=== PATIENT | female | born 1935 | race Caucasian/White ===

== ENCOUNTER 2023-09-01 15:56 | Outpatient (RCR) | payer MEDICARE, OTHER, SELFPAY | END 2023-09-04 09:25 | disposition home or self-care (01) | LOC: RPT 15:56 | PROVIDERS: ATTENDING PHYSICIAN Family Medicine | DX: R26.89 Other abnormalities of gait and mobility (principal) | CPT/HCPCS: 97110; 97112; 97116; 97163; 97530 ==

== ENCOUNTER 2023-10-03 13:48 | Outpatient (RCR) | payer MEDICARE, OTHER, SELFPAY | END 2023-10-03 23:59 | disposition home or self-care (01) | LOC: RPT 13:48 | PROVIDERS: ATTENDING PHYSICIAN Family Medicine | DX: R26.89 Other abnormalities of gait and mobility (principal); Z73.6 Limitation of activities due to disability; R26.2 Difficulty in walking, not elsewhere classified | CPT/HCPCS: 97110; 97112 ==

== ENCOUNTER 2023-10-31 09:09 | Outpatient (RCR) | payer MEDICARE, OTHER, SELFPAY | END 2023-10-31 23:59 | disposition home or self-care (01) | LOC: RPT 09:09 | PROVIDERS: ATTENDING PHYSICIAN Family Medicine | DX: R26.89 Other abnormalities of gait and mobility (principal); Z73.6 Limitation of activities due to disability; R26.2 Difficulty in walking, not elsewhere classified; I69.398 Other sequelae of cerebral infarction | CPT/HCPCS: 97110; 97112 ==

== ENCOUNTER 2023-11-28 09:50 | Outpatient (RCR) | payer MEDICARE, OTHER, SELFPAY | END 2023-11-28 23:59 | disposition home or self-care (01) | LOC: RPT 09:50 | PROVIDERS: ATTENDING PHYSICIAN Family Medicine | DX: R26.89 Other abnormalities of gait and mobility (principal); Z73.6 Limitation of activities due to disability; R26.2 Difficulty in walking, not elsewhere classified | CPT/HCPCS: 97110; 97112; 97530 ==

== ENCOUNTER 2024-01-09 21:24 | Emergency (ER) | payer MEDICARE, OTHER, SELFPAY ==
[2024-01-09 21:57] LABS: % Basophils 0.5 % (0-2); % Eosinophils 2.6 % (0-6); % Immature Granulocytes 0.3 % (0-0.5); % Lymphocytes 23.7 % (20.5-51.1); % Monocytes 7.8 % (1.7-9.3); % Neutrophils 65.1 % (42.2-75.2); Absolute Eosinophils 0.2 10^3/uL (0-0.7); Absolute Monocytes 0.7 10^3/uL (0.1-0.6); Absolute Neutrophils 5.6 10^3/uL (1.4-6.5); Hemoglobin 13.1 g/dL (12.0-16.0); Mean Corp Hgb Conc. 33.6 g/dL (33.0-37.0); Mean Corpuscular Hgb 31.1 pg (27.0-31.0); Mean Corpuscular Volume 92.6 fL (81.0-99.0); Mean Platelet Volume 9.6 fL (7.4-10.4); Nucleated Red Blood Cells % 0 %; Platelet Count 256 10^3/uL (130-400); Red Blood Cell Count 4.21 10^6/uL (4.20-5.40); Red Cell Dist. Width 13.9 % (11.5-14.5); White Blood Cell Count 8.6 10^3/uL (4.8-10.8)
[2024-01-09 22:11] LABS: ALT (SGPT) 18 U/L (0-35); AST (SGOT) 33 U/L (14-36); Albumin 4.2 g/dl (3.5-5.0); Alkaline Phosphatase 130 U/L (38-126); Blood Urea Nitrogen 19 mg/dl (7-17); Calcium 9.5 mg/dl (8.4-10.2); Carbon Dioxide 27 mmol/L (22-30); Chloride 103 mmol/L (98-107); Glucose 126 mg/dl (70-99); Potassium 4.2 mmol/L (3.5-5.1); Sodium 137 mmol/L (135-145); Total Bilirubin 0.5 mg/dl (0.2-1.3); Total Protein 7.7 g/dl (6.3-8.2); eGFR > 60.00
[2024-01-10 00:39] VITALS: BP 161/94; BMI 34.4
[2024-01-10 01:00] VITALS: BP 173/78
--- NOTE | 2024-01-10 01:21 | ED.GENMED ---
History of Present Illness
General
Chief Complaint: Weakness
Time Seen by Provider: 01/10/24 01:21
Travel History
Have you had any contact with someone who has COVID-19?: No
Do you have any symptoms of coronavirus? Fever > 100 degrees, chills, cough, shortness of breath, sore throat, loss of taste or smell, muscle aches, or headache?: No
History of Present Illness
History of Present Illness:
HPI: Patient's daughter brought the patient here due to concerns for some change in her speech. The daughter seems to have some problems with expressive aphasia that may have started at some point today however the daughter also indicates that she
has had similar episodes in the past. The patient was at her other daughter's house over the past month and the daughter at bedside [place] and noticed somewhat of a change. The patient describes some degree of
expressive aphasia however the timing is unclear. She reports vague weakness as well. She reports no focal findings.
EXAM:
GENERAL: Well appearing in no distress
HEENT: Moist oral mucosa
CARDIOVASCULAR: No murmurs, normal heart rate, regular rhythm, No chest wall tenderness
PULMONARY: No respiratory distress, breath sounds are clear and equal
ABDOMEN: Soft with no peritoneal signs, no tenderness
NEUROLOGIC: Good strength all extremities, no coordination deficits, normal finger-nose testing bilaterally
PSYCHIATRIC: Fairly good mental status, reasonable insight and judgement, she knows that it is May, she knows that she is at [facility]
EXTREMITIES: Nontender, no edema, moves all extremities equally
SKIN: No rash, no lesions
TIME OF INITIAL ENCOUNTER: 12:30 AM
NUMBER AND COMPLEXITY OF PROBLEMS ADDRESSED AT THE ENCOUNTER
� Chronic conditions affecting care: Dementia, high blood pressure, hyperlipidemia, GERD, colon cancer, hypothyroidism, anemia
� Acute Exacerbation and/or Progression of Chronic Illness: This is an acute problem
� Differential Diagnosis includes: CVA, UTI, electrolyte abnormality such as hyponatremia, progressive functional decline, worsening dementia
AMOUNT AND/OR COMPLEXITY OF DATA TO BE REVIEWED AND ANALYZED
� I performed an independent evaluation of and my interpretation is:
EKG: Sinus 62, left axis deviation, left bundle branch block which is new in comparison to 06/19/2019
CT: Brain CT shows chronic abnormality but no acute finding
X-rays:
Laboratory Studies: White blood cell count was normal at 8.6, hemoglobin 13.1, chemistries relatively unremarkable. Urinalysis shows no evidence of infection.
Other:
� Review of other/old records: I reviewed records, the patient had endoscopy in 2020 and was getting physical therapy here 2 months ago
� Clinical information was obtained by an independent historian: I spoke to the daughter at bedside
� Prescriptions/Medications Considered but not given:
� Further testing considered but not performed:
RISK OF COMPLICATIONS AND/OR MORBIDITY OR MORTALITY OF PATIENT MANAGEMENT
� Social determinants of health affecting care: Lives at home
� Discussion with other providers:
� Escalation of care including admission/observation vs risk of discharge considered: The patient's symptoms may or may not be related to CVA. The timing is somewhat unclear as the daughter said that she saw her for the first
time in a month and noticed the symptoms today but is also noticed similar episodes in the past. I offered to consider keeping the patient in the hospital given her advanced age with potential neurologic concerns however the she is strongly wants
to be managed as an outpatient. I feel this would be reasonable. I reassessed the patient several times and still did not hear any clear acute speech abnormality. There is no definite aphasia or speech dysarthria. Ultimately patient and daughter
preferred outpatient management.
Past History
Past History
ED Past Medical History: Asthma, Cancer (Colon CA 2016), CVA (Oct 2018), GERD, HTN, Hypercholesterolemia, Hypothyroidism and Other (LE neuropathy)
ED Past Surgical History: Appendectomy and Bowel resection
Social History
Tobacco: Former smoker
Alcohol: None
Personal:
Living: with family
Employment: Retired
Family History
Family History: Hypertension and Other (Stroke)
Phy Exam
Physical Exam
Physical Exam:
See HPI
Course
Orders/Labs/Results
Orders:
Orders
01/09/24 21:37
Electrocardiogram (*1) Urgent
Reason for Study: Fatigue / Weakness
Head wo Contrast CT [CT Head W/o Iv Contrast] Urgent
Comment:
Reason For Exam: weakness
EKG- Treatment ONCE
Urinalysis Reflex To Culture Urgent
Date Specimen was Collected: 01/09/24
Time Specimen was Collected: 21:37
01/09/24 21:52
CMP [Comprehensive Metabolic Panel] Urgent
Complete Blood Count/With Diff Urgent
01/10/24 01:32
Straight cath- Treatment ONCE
Abnormal Lab Results
01/09/24
21:52
MCH 31.1 H pg
(27.0-31.0)
Absolute Monos (auto) 0.7 H 10^3/uL
(0.1-0.6)
BUN 19 H mg/dl
(7-17)
Glucose 126 H mg/dl
(70-99)
Alkaline Phosphatase 130 H U/L
(38-126)
01/09/24 21:52
01/09/24 21:52
Vital Signs
Initial and Last Documented VS:
Initial Vital Signs
Temp Pulse Resp Pulse Ox
97 F 63 18 95
01/09/24 21:32 01/09/24 21:32 01/09/24 21:32 01/09/24 21:32
Last Documented Vital Signs
Temp Pulse Resp BP Pulse Ox
97 F 52 21 187/79 95
01/09/24 21:32 01/10/24 02:15 01/10/24 02:15 01/10/24 02:00 01/10/24 02:15
*Critical Care Note
Total Time (30-74mins, 75-104mins- exclusive of procedures): Not Applicable
ED Attending Note
-
Portions of this chart may have been created with voice recognition software.� Occasional wrong word or��sound alike� substitutions may have occurred due to the inherent limitations of voice recognition software.
Discharge Plan
Departure
Patient Disposition: Home (Routine Discharge)
Date of Disposition: 01/10/24
Time of Disposition: 02:25
Patient with high blood pressure during this ER visit?: Yes
Discharge Problem:
Speech abnormality
Prescriptions:
No Action
losartan 50 MG tablet
100 mg PO HS
levothyroxine 150 MCG tablet
150 mcg PO DAILY
cyanocobalamin (vitamin B-12) 1,000 MCG tablet
100 mcg PO DAILY
gabapentin 300 MG capsule
300 mg PO BID
verapamil 240 MG tablet extended release
240 mg PO QPM
multivitamin 1 EACH tablet
1 ea PO DAILY
atorvastatin 80 MG tablet
80 mg PO DAILY
sertraline 25 MG tablet
25 mg PO DAILY
albuterol sulfate [Proventil HFA] 90 MCG/PUFF HFA aerosol inhaler
2 puff inhalation Q4H PRN (Reason: SOB) Qty: 1 0RF
cholecalciferol (vitamin D3) 1,000 UNITS tablet
1,000 units PO DAILY
pantoprazole 40 MG tablet,delayed release (DR/EC)
40 mg PO BID Qty: 60 0RF
Referrals:
Phill Martin, [Family Provider] -
Activity Restrictions/Additional Instructions:
The cause of your symptoms is unclear. Urinalysis shows no evidence of infection. Complete blood cell count and chemistries are unremarkable. The CAT scan of the brain shows no definite acute abnormality. EKG shows a normal sinus rhythm.
Interventions
Interventions:
*Risk Screen - Suicide Last Done: 01/10/24 00:09
*General Assessment Last Done: 01/09/24 21:32
*Neglect/Abuse Screening Last Done: 01/10/24 00:09
ED- Cardiac Assessment Last Done: 01/10/24 00:39
ED- Neurological Assessment Last Done: 01/10/24 00:39
ED- Pulmonary Assessment Last Done: 01/10/24 00:39
Discharge Date and Time
Print Language: RWANDAN
[2024-01-10 01:59] LABS: Urine Albumin Negative (Neg - Trace); Urine Bilirubin Negative (Negative); Urine Character Clear (Clear); Urine Color Yellow; Urine Glucose Negative (Negative); Urine Ketone Negative (Negative); Urine Leukocyte Negative (Negative); Urine Nitrite Negative (Negative); Urine Occult Blood Negative (Negative); Urine Urobilinogen Negative (Neg - 1+)
[2024-01-10 02:00] VITALS: BP 187/79
== END 2024-01-10 02:59 | disposition home or self-care (01) ==
LOC: EMR 21:24
PROVIDERS: Emergency Medicine; EMERGENCY PHYSICIAN Emergency Medicine; FAMILY PHYSICIAN Family Medicine
DX: R47.9 Unspecified speech disturbances (principal); I10 Essential (primary) hypertension; F03.90 Unspecified dementia, unspecified severity, without behavioral disturbance, psychotic disturbance, mood disturbance, and anxiety; E78.00 Pure hypercholesterolemia, unspecified; E03.9 Hypothyroidism, unspecified; Z87.891 Personal history of nicotine dependence; K21.9 Gastro-esophageal reflux disease without esophagitis
CPT/HCPCS: 99284; 70450; 80053; 81003; 85025; 93005

== ENCOUNTER 2024-02-02 16:28 | Outpatient (RCR) | payer MEDICARE, OTHER, SELFPAY | END 2024-02-02 23:59 | disposition home or self-care (01) | LOC: RPT 16:28 | PROVIDERS: ATTENDING PHYSICIAN Family Medicine | DX: R26.89 Other abnormalities of gait and mobility (principal); Z73.6 Limitation of activities due to disability | CPT/HCPCS: 97110; 97112 ==

== ENCOUNTER 2024-03-01 14:08 | Outpatient (RCR) | payer MEDICARE, OTHER, SELFPAY | END 2024-03-01 23:59 | disposition home or self-care (01) | LOC: RPT 14:08 | PROVIDERS: ATTENDING PHYSICIAN Family Medicine | DX: R26.89 Other abnormalities of gait and mobility (principal); Z73.6 Limitation of activities due to disability | CPT/HCPCS: 97110; 97112; 97530 ==

== ENCOUNTER 2024-04-03 11:50 | Outpatient (RCR) | payer MEDICARE, OTHER, SELFPAY | END 2024-04-03 23:59 | disposition home or self-care (01) | LOC: RPT 11:50 | PROVIDERS: ATTENDING PHYSICIAN Family Medicine | DX: R26.89 Other abnormalities of gait and mobility (principal); Z73.6 Limitation of activities due to disability | CPT/HCPCS: 97110; 97112; 97530 ==

== ENCOUNTER 2024-05-03 12:04 | Outpatient (RCR) | payer MEDICARE, OTHER, SELFPAY | END 2024-05-03 23:59 | disposition home or self-care (01) | LOC: RPT 12:04 | PROVIDERS: ATTENDING PHYSICIAN Family Medicine | DX: R26.89 Other abnormalities of gait and mobility (principal) | CPT/HCPCS: 97110; 97112; 97530 ==

== ENCOUNTER 2024-05-22 11:32 | Outpatient (RCR) | payer MEDICARE, OTHER, SELFPAY | END 2024-05-22 23:59 | disposition home or self-care (01) | LOC: RPT 11:32 | PROVIDERS: ATTENDING PHYSICIAN Family Medicine | DX: R26.89 Other abnormalities of gait and mobility (principal); Z73.6 Limitation of activities due to disability; R26.2 Difficulty in walking, not elsewhere classified | CPT/HCPCS: 97110 ==

== ENCOUNTER 2024-07-03 11:53 | Outpatient (RCR) | payer MEDICARE, OTHER, SELFPAY | END 2024-07-03 23:59 | disposition home or self-care (01) | LOC: RPT 11:53 | PROVIDERS: ATTENDING PHYSICIAN Family Medicine | DX: R26.89 Other abnormalities of gait and mobility (principal); Z73.6 Limitation of activities due to disability | CPT/HCPCS: 97110; 97112; 97530 ==

== ENCOUNTER 2024-07-31 11:58 | Outpatient (RCR) | payer MEDICARE, OTHER, SELFPAY | END 2024-07-31 23:59 | disposition home or self-care (01) | LOC: RPT 11:58 | PROVIDERS: ATTENDING PHYSICIAN Family Medicine | DX: R26.89 Other abnormalities of gait and mobility (principal); Z73.6 Limitation of activities due to disability; R26.2 Difficulty in walking, not elsewhere classified | CPT/HCPCS: 97110; 97112; 97530 ==

== ENCOUNTER 2024-08-09 16:59 | Outpatient (RCR) | payer MEDICARE, OTHER, SELFPAY | END 2024-08-15 11:00 | disposition home or self-care (01) | LOC: RPT 16:59 | PROVIDERS: ATTENDING PHYSICIAN Family Medicine | DX: R26.89 Other abnormalities of gait and mobility (principal); Z73.6 Limitation of activities due to disability; R26.2 Difficulty in walking, not elsewhere classified | CPT/HCPCS: 97110; 97530 ==